=== PATIENT | male | born 1970 | race Caucasian/White ===

== ENCOUNTER 2016-09-06 00:13 | Emergency (ER) | payer SELFPAY ==
[2016-09-06] MEDS ORDERED: HYDROmorphone 1 MG/ML Syringe IVPUSH ONE (00:35)
[2016-09-06] MEDS ORDERED: Metoclopramide 10 MG/2 ML SDV IVPUSH ONE (00:35)
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
[2016-09-06] MEDS ORDERED: Sodium Chloride 0.9% 1,000 ML IV SCH (00:45)
[2016-09-06] MEDS ORDERED: Ketorolac 30 MG/ML SDV IVPUSH SCH (00:45)
[2016-09-06] MEDS ORDERED: Ondansetron 4 MG Tab.DIS ONE (01:24)
[2016-09-06] MEDS ORDERED: Acetaminophen/oxyCODONE 325-5 MG Tab ONE (01:24)
[2016-09-06 01:38] VITALS: BP 135/88
--- NOTE | 2016-09-06 09:40 | CT ---
CT abdomen and pelvis Technique: Multiple axial sections were obtained from above the dome of the diaphragm inferiorly through the pubic symphysis. Intravenous and oral contrast not utilized. Study has been performed as a ureteral stone protocol. Comparison: No previous abdominal imaging. Findings: Small 2 mm calculus noted within the distal left ureter at the UVJ. This causes minimal proximal hydronephrosis. Small hyperdense areas are seen within both kidneys believe to represent minimal hemorrhagic cysts. Two larger cysts noted within the right kidney with largest measuring approximately 3.4 cm. Small group of nonobstructing calculi noted within the left kidney. Visualized lung bases show nothing acute. Noncontrast appearance of the liver and spleen are within normal limits. Adrenal glands show no nodule. Pancreas is unremarkable. Gallbladder shows no calcified gallstones. Aorta shows mild atherosclerotic change without aneurysmal dilatation. No retroperitoneal adenopathy or mesenteric abnormalities are seen. No pelvic mass or adenopathy is seen. Appendix is seen which is normal. Bone window settings were reviewed which show mild degenerative spurring throughout the spine. Impression: 1. 2 mm partially obstructing stone within the distal left ureter. 2. Cysts within both kidneys one of which on each side appears hemorrhagic. 3. Small group of nonobstructing calculi within the left kidney. Diagnostic code #3 I agree with preliminary report issued by [facility] ([facility] report finalized on 09/06/16, 2:19 AM Central Time)
== END 2016-09-06 01:30 | disposition home or self-care (01) ==
LOC: JD.ED 00:13
DX: N23 Unspecified renal colic (principal); F17.210 Nicotine dependence, cigarettes, uncomplicated; Z88.0 Allergy status to penicillin; Z87.442 Personal history of urinary calculi
CPT/HCPCS: 74176; 96361; 96374; 96375; 99284; A9270; J1170; J1885; J2765; J7040

== ENCOUNTER 2016-10-15 06:30 | Emergency (ER) | payer SELFPAY ==
[2016-10-15 06:38] VITALS: BP 124/84
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
--- NOTE | 2016-10-15 10:33 | CR ---
Left shoulder: Four views of the left shoulder were obtained. Comparison: No previous study. Acromioclavicular and glenohumeral joints are within normal limits. No fracture, dislocation or other bony abnormality is seen. Impression: 1. No abnormality is identified on left shoulder study. Diagnostic code #1
== END 2016-10-15 07:46 | disposition home or self-care (01) ==
LOC: JD.ED 06:30
DX: M67.912 Unspecified disorder of synovium and tendon, left shoulder (principal); F17.210 Nicotine dependence, cigarettes, uncomplicated; Z88.0 Allergy status to penicillin; Z87.442 Personal history of urinary calculi
CPT/HCPCS: 73030-26-LT; 73030-LT; 99283

== ENCOUNTER 2020-03-30 07:45 | Emergency (ER) | payer MEDICAID ==
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
[2020-03-30 08:02] VITALS: BP 100/61; PULSE 75
[2020-03-30] MEDS ORDERED: Sodium Chloride 0.9% 1,000 ML IV SCH (08:30)
[2020-03-30] MEDS ORDERED: Sodium Chloride 0.9% 10 ML Syringe FLUSH PRN (09:06)
[2020-03-30] MEDS ORDERED: Iopamidol 612 MG/ML 50 ML SDV IVPUSH ONE (09:06)
[2020-03-30] MEDS ORDERED: Iopamidol 612 MG/ML 100 ML Bottle IVPUSH ONE (09:06)
--- NOTE | 2020-03-30 09:56 | CT ---
CT chest Technique: Multiple axial sections through the chest were obtained. Intravenous contrast was utilized. Reconstructed coronal and sagittal images were obtained. Comparison: No prior chest imaging is available. Findings: Thoracic aorta shows mild atherosclerotic calcification with no aneurysm. Visualized pulmonary artery shows no larger pulmonary embolism. Mediastinum and hilar regions show no adenopathy. No pericardial thickening is appreciated. Lung window settings were reviewed. No acute parenchymal change is appreciated. No pleural effusion or pneumothorax is seen. There is a small air cyst seen within the left base measuring about 1 cm. Bone window settings were reviewed which show no acute osseous finding. Impression: 1. Nothing acute is appreciated on CT study of the chest. Diagnostic code #1 CT abdomen and pelvis Technique: Multiple axial sections were obtained from above the dome of the diaphragm inferiorly through the pubic symphysis. Intravenous contrast was not utilized. Delayed images were obtained to the bladder. Reconstructed sagittal and coronal images were also obtained. Comparison: Prior CT abdomen and pelvis exam performed without contrast and dated 09/06/16. Findings: Very minimal low density lesion seen within the dome of the left lobe of the liver measuring about 4 mm. This is too small to accurately measure but most likely represents a cyst. Minimal amount of fat is seen next to the ligamentum teres fissure. No additional liver abnormality is appreciated. Spleen shows no focal abnormality. Several nodules are seen medial to the spleen compatible with this accessory splenic tissue. Pancreas appears normal. Adrenal glands show no nodule. Cyst is noted off the upper right kidney measuring 3.8 cm. Second cyst is noted off the lower right kidney measuring 3.5 cm. Cyst is noted off the medial left kidney measuring approximately 1.6 cm. Calcification is seen within the upper left kidney which is stable from prior study compatible with a nonobstructing calculus. Aorta shows mild atherosclerotic change with no aneurysm. Gallbladder contains no calcified gallstones. No retroperitoneal adenopathy or mesenteric abnormalities are seen. No pelvic mass or adenopathy is appreciated. Appendix is seen and is normal in size. No free fluid or inflammatory change is appreciated. Delayed images show contrast within the distal ureters as well as within the bladder. Bone window settings were reviewed which show no acute bony abnormality. Impression: 1. Renal cysts as noted above. Other nonacute findings as noted above. 2. Nothing acute is appreciated on CT study of the abdomen and pelvis. Diagnostic code #2
[2020-03-30] MEDS ORDERED: Ondansetron 4 MG/2 ML SDV IVPUSH ONE (11:10)
[2020-03-30] MEDS ORDERED: fentaNYL 100 MCG/2 ML SDV IVPUSH ONE (11:10)
== END 2020-03-30 13:30 | disposition home or self-care (01) ==
LOC: JD.ED 07:45
DX: S29.9XXA Unspecified injury of thorax, initial encounter (principal); K85.90 Acute pancreatitis without necrosis or infection, unspecified; Z79.899 Other long term (current) drug therapy; Z88.0 Allergy status to penicillin; W01.10XA Fall on same level from slipping, tripping and stumbling with subsequent striking against unspecified object, initial encounter
CPT/HCPCS: 36415; 71260; 74177; 80053; 80307; 81003; 83690; 84478; 84484; 85025; 85379; 85610; 85730; 93005; 96374; 96375; 99284; J2405; J3010; J7030; Q9967